=== PATIENT | male | born 1985 | race Caucasian/White ===

== ENCOUNTER 2019-04-26 14:02 | Outpatient (CLI) | payer OTHER, SELFPAY ==
--- NOTE | ~2019-04-26 | XR_ITS ---
EXAMINATION: XR chest 2V DATE: 04/26/2019 14:23 INDICATION: Cough and shortness of breath. TECHNIQUE: Frontal and lateral views of the chest were obtained. COMPARISON: None. FINDINGS: The chest demonstrates clear lungs without pneumonia, pleural effusion, or pneumothorax. Th e heart size is normal. IMPRESSION: 1. No acute cardiopulmonary disease. Reviewed, dictated and finalized at location A. ASSISTANT
== END 2019-04-26 14:03 | disposition home or self-care (01) ==
LOC: ANHIMG 14:12
PROVIDERS: PCP Family Medicine; Visit Provider Physician Assistant
DX: R05 Cough (principal); R06.02 Shortness of breath
CPT/HCPCS: 71046

== ENCOUNTER 2021-06-24 15:46 | Outpatient (CLI) | payer OTHER, SELFPAY ==
--- NOTE | ~2021-06-24 | XR_ITS ---
XR lumbar spine min 4V DATE: 06/24/2021 16:18 INDICATION: Low back pain TECHNIQUE: AP, lateral, coned lateral lumbosacral and bilateral oblique views COMPARISON: None FINDINGS: There are 5 functional lumbar vertebrae. There is a transitional first sacral vertebra with sacralization and pseudoarthrosis on the right, lumbarization on the left. This may be a source of c hronic low back pain. No fracture, bone destruction, spondylolysis or anterolisthesis. The lumbar pedicles are intact. There is moderate loss of interspace height and mild retrolisthesis at L5-S1. The sacroiliac joints are intact. 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 IMPRESSION: Transitional first sacral vertebra with sacralization pseudoarthros is on the right Moderate loss of interspace height and mild retrolisthesis at L5-S1
== END 2021-06-24 15:47 ==
PROVIDERS: PCP Physician Assistant; Visit Provider Physician Assistant
DX: M54.50 Low back pain, unspecified (principal); Q76.49 Other congenital malformations of spine, not associated with scoliosis
CPT/HCPCS: 72110

== ENCOUNTER 2021-07-24 10:35 | Outpatient (CLI) | payer OTHER, SELFPAY ==
--- NOTE | ~2021-07-24 | MR_ITS ---
EXAMINATION: MR lumbar spine wo con DATE: 07/24/2021 11:06 INDICATION: M54.50 - Low back pain, unspecified . TECHNIQUE: Magnetic resonance imaging (MRI) of the lumbar spine was performed without intravenous con trast. Sequences included sagittal T2-weighted FSE, sagittal T2-weighted FS FSE, sagittal T1-weighted FSE, and axial T2-weighted FSE. COMPARISON: Lumbar spine x-ray 06/24/2021, MR lumbar spine 12/08/2009. FINDINGS: The last hydrated disc is designated L6-S1. Sacralization of L6 on the right with pseudoart hrosis, with 6 lumbar-type vertebral bodies (hypoplastic T12 ribs also possible). 2 mm retrolisthesis of L5 on L6. The marrow signal is benign and homogenous. Conus terminates at L1-2. Disc height loss and dehydration at L5-6 and L6-S1. The following disc levels are specifically discussed: T12-L1: The disc does not extend beyond the endplate margin. There is no facet joint osteoarthritis. There is no neural foraminal stenosis. There is no central canal stenosis. L1-L2: The disc does not extend beyond the endplate margin. There is mild facet joint osteoarthritis. There is no neural foraminal stenosis. There is no central canal stenosis. L2-L3: Mild diffuse bulge. There is mild facet joint osteoarthritis. There is no neural foraminal [place] nosis. There is no central canal stenosis. L3-L4: Mild diffuse bulge. There is mild facet joint osteoarthritis. There is no neural foraminal [place] nosis. There is no central canal stenosis. L4-L5: Mild diffuse bulge. There is mild facet joint osteoarthritis. There is no neural foraminal [place] nosis. There is no central canal stenosis. L5-L6: Broad-based 4 mm left paracentral protrusion superimposed on a moderate bulge. The protrusion contacts and displaces the traversing left nerve root. There is moderate facet joint osteoarthritis. There is no neural foraminal stenosis. There is no central canal stenosis. L6-L1: Mild There is mild facet joint osteoarthritis. There is no neural foraminal stenosis. There is no central canal stenosis. IMPRESSION: 1. Spinal level numbering anomaly, designated levels differ in this MRI examination from the prior ra diographs, recommend full spine radiographs to verify levels if intervention is planned. 2. 4 mm left L5-L6 disc protrusion which contacts and displaces the traversing left sided nerve root, largely unchanged from the prior MRI. 3. Right L6 sacralization with pseudoarthrosis which can be a source of chronic pain. Reviewed, dictated and finalized at location K. IMPRESSION: 1. Spinal level numbering anomaly, designated levels differ in this MRI examina tion from the prior radiographs, recommend full spine radiographs to verify lev els if intervention is planned. 2. 4 mm left L5-L6 disc protrusion which contacts and displaces the traversing left sided nerve root, largely unchanged from the prior MRI. 3. Right L6 sacralization with pseudoarthrosis which can be a source of chronic pain.
== END 2021-07-24 10:36 | disposition home or self-care (01) ==
PROVIDERS: PCP Family Medicine; Visit Provider Physician Assistant
DX: Q76.49 Other congenital malformations of spine, not associated with scoliosis (principal); M51.26 Other intervertebral disc displacement, lumbar region
CPT/HCPCS: 72148

== ENCOUNTER 2021-08-27 18:37 | Emergency (ER) | payer OTHER, SELFPAY ==
--- NOTE | 2021-08-27 18:40 | ED.GENADULT ---
HPI - General Adult General Chief complaint: Unspecified Stated complaint: Body Tingling Time Seen by Provider: 08/27/21 18:40 Source: patient, family and RN notes reviewed History of Present Illness HPI narrative: Patient is a 36-year-old male who presents the urgent care with complaints of full body tingling. Patient states that he has been on Bactrim for a skin infection on his hand after hitting it with a sledgehammer. Patient states today is day 7 and he was prescribed 10 days of the medication. Patient states that yesterday he came home after working long hours in the heat, mowed the lawn and drink a few beers. Patient states that for the last 24 hours he has had intermittent tingling down his legs and arms. Patient states it does not last long but does come and go. Denies of any nausea or vomiting. Denies of any fatigue or lethargy. Denies any chest pain or palpitations. 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 No other acute complaints. No acute distress noted. Patient aware of the plan of care. Some parts of this dictation were generated by voice recognition software and may contain typographical and/or grammatical inaccuracies. Related Data Home Medications Medication Instructions Recorded Confirmed tramadol 50 mg tablet 50 mg PO DIRECTED PRN Back Pain 08/27/21 08/27/21 Allergies Allergy/AdvReac Type Severity Reaction Status Date / Time Penicillins Allergy Unknown Verified 08/27/21 18:50 Review of Systems Review of Systems: CONSTITUTIONAL: Denies fever, chills, or sweats. EYES: Denies visual changes, redness, or discharge. ENT: Denies rhinorrhea, congestion, sore throat, or otalgia. CARDIOVASCULAR: Denies chest pain, palpitations, or edema. RESPIRATORY: Denies cough or dyspnea. GASTROINTESTINAL: Denies abdominal pain, nausea, vomiting, or diarrhea. GENITOURINARY: Denies dysuria or hematuria. SKIN: Denies rash or itching. MUSCULOSKELETAL: Denies back pain, joint pain, or myalgia. NEUROLOGIC: Denies headache, numbness, or weakness. Reports of full body tingling intermittently All other systems reviewed are negative, except as documented in HPI. PMFSH Comments At the time of my signature, I reviewed and agree with the nursing past medical, surgical, social, and family history. There is no relevant family history pertinent to the patient complaint. Exam Narrative: GENERAL: This is a well-nourished, well-developed patient. Appears slightly anxious HEAD: normocephalic, atraumatic. EYES: PERRL. Sclera clear/white. Vision is grossly intact. EARS: External ears normal NOSE: External nose normal with no obvious nasal discharge, nares without redness, no rhinorrhea. THROAT: Mucous membranes moist, posterior pharynx clear. NECK: Neck supple, non-tender without lymphadenopathy CARDIOVASCULAR: Regular rate and rhythm without murmurs, gallops, or rubs. RESPIRATORY: Clear to auscultation. Breath sounds equal bilaterally. No wheezes, rales, or rhonchi. SKIN: warm, intact with no suspicious lesions or rash, good texture and turgor. NEURO: awake, alert, and oriented to person, place and time. There were no obvious focal neurologic abnormalities. EXTREMITIES: No clubbing, cyanosis, or edema. Course Course Level of Care: Express Care Visit Vital Signs Vital signs: Vital Signs Temperature 99 F 08/27/21 18:45 Pulse Rate 72 08/27/21 18:45 Respiratory Rate 16 08/27/21 18:45 Blood Pressure 151/68 H 08/27/21 18:45 Pulse Oximetry 99 08/27/21 18:45 Oxygen Delivery Room Air 08/27/21 18:45 Temperature 99 F 08/27/21 18:45 Pulse Rate 72 08/27/21 18:45 Respiratory Rate 16 08/27/21 18:45 Blood Pressure 151/68 H 08/27/21 18:45 Pulse Oximetry 99 08/27/21 18:45 Oxygen Delivery Room Air 08/27/21 18:45 Reviewed-patient is informed that they may have pre-hypertension or hypertension based on a blood press
[2021-08-27 18:45] VITALS: BP 151/68; PULSE 72; RESP 16; TEMP 37.2; O2SAT 99
== END 2021-08-27 19:01 | disposition home or self-care (01) ==
PROVIDERS: Emergency Provider Nurse Practitioner Family; PCP Family Medicine
DX: R20.2 Paresthesia of skin (principal); T36.8X5A Adverse effect of other systemic antibiotics, initial encounter
CPT/HCPCS: 99211; G0463

== ENCOUNTER 2022-04-12 14:36 | Outpatient (CLI) | payer OTHER, SELFPAY ==
[2022-04-12 19:31] LABS: Basophils Absolute Auto 0.1 K/mm3 (0.0-0.1); Basophils Percent Auto 0.8 % (0.2-1.2); Eosinophils Absolute Auto 0.6 K/mm3 (0-0.3); Eosinophils Percent Auto 6.5 % (0-4.4); Hematocrit 48.6 % (42.0-52.0); Hemoglobin 16.7 g/dL (14.0-18.0); Immature Granulocyte Absolute 0.03 K/mm3 (0.00-0.031); Immature Granulocyte Percent A 0.3 % (0-0.5); Lymphocytes Absolute Auto 2.44 K/mm3 (0.9-3.2); Lymphocytes Percent Auto 28.1 % (18.3-44.2); Mean Corpuscular HGB Conc 34.4 g/dl (32-36); Mean Corpuscular Hemoglobin 30.3 pg (26-34); Mean Platelet Volume 9.3 fl (7.4-10.4); Monocytes Absolute Auto 0.9 K/mm3 (0.1-0.6); Monocytes Percent Auto 9.9 % (2.6-8.5); Neutrophils Absolute Auto 4.7 K/mm3 (1.3-6.7); Neutrophils Percent Auto 54.4 % (45.5-73.1); Platelet Count Result 270 k/mm3 (150-375); Red Blood Count 5.52 M/mm3 (4.6-6.20); Red Cell Distribution Width 12.7 % (11.5-14.5); White Blood Count 8.7 K/mm3 (4.5-10.0)
[2022-04-12 19:42] LABS: Alanine Aminotransferase 34 U/L (6-50); Albumin Level 4.4 g/dL (3.5-5.1); Alkaline Phosphatase 57 U/L (38-126); Anion Gap 8 mmol/L (8-16); Aspartate Amino Transferase 31 U/L (17-59); Bilirubin,Total 0.9 mg/dL (0.2-1.3); Blood Urea Nitrogen 19 mg/dL (9-20); Calcium 9.6 mg/dL (8.4-10.2); Carbon Dioxide 30 mmol/L (22-30); Chloride 102 mmol/L (98-107); Cholesterol 241 mg/dL (0-200); Estimated Glomerular Filt Rate > 60; Glucose 89 mg/dL (65-110); HDL Direct 38 mg/dL; Potassium 4.6 mmol/L (3.4-5.0); Sodium 140 mmol/L (137-145); Triglycerides 277 mg/dL (<150)
[2022-04-12 19:53] LABS: LDL Cholesterol Direct 145 mg/dL
== END 2022-04-12 14:37 | disposition home or self-care (01) ==
LOC: ANHBWCLAB 14:37
PROVIDERS: PCP Family Medicine; Visit Provider Family Medicine
DX: Z00.00 Encounter for general adult medical examination without abnormal findings (principal); R00.2 Palpitations
CPT/HCPCS: 36415; 80053; 80061; 84443; 85025